=== PATIENT | female | born 1985 | race Caucasian/White ===

== ENCOUNTER 2019-04-10 15:30 | Outpatient (CLI) | payer BC | END 2019-04-10 17:30 | disposition home or self-care (01) | LOC: LDOP 15:30 | PROVIDERS: ATTEND Obstetrics & Gynecology | DX: O16.3 Unspecified maternal hypertension, third trimester (principal); Z3A.38 38 weeks gestation of pregnancy | CPT/HCPCS: 36415; 59025; 80053; 81003; 82248; 82570; 84156; 84550; 85025; 99211; G0463 ==

== ENCOUNTER 2019-04-14 22:09 | Inpatient (IN) | payer BC ==
[~2019-04-14] VITALS: Ht 165.1 cm; Wt 104.5 kg
[2019-04-14 22:00] VITALS: BP 173/95
[~2019-04-14 22:09] MED LIST: NIFE30TA2 PO
[2019-04-14 22:33] LABS: MICROSCOPIC INDICATED
[2019-04-14 22:39] LABS: BASOPHILS # (AUTO) 0.03 x10^3/uL (0-0.1); BASOPHILS % (AUTO) 0 % (0-1); EOSINOPHILS # (AUTO) 0.05 x10^3/uL (0-0.4); EOSINOPHILS % (AUTO) 1 % (1-7); LYMPHOCYTES # (AUTO) 3.07 x10^3/uL (1-3.4); LYMPHOCYTES % (AUTO) 33 % (22-44); MD NO; MEAN CORPUSCULAR HEMOGLOBIN 26.3 pg (27.0-34.8); MEAN CORPUSCULAR VOLUME 82.3 fL (80-100); MONOCYTES # (AUTO) 0.69 x10^3/uL (0.2-0.8); MONOCYTES % (AUTO) 7 % (2-9); NEUTROPHILS # (AUTO) 5.59 x10^3/uL (1.8-6.8); NEUTROPHILS % (AUTO) 59 % (42-75); PLATELET COUNT 251 x10^3/uL (130-400); RED BLOOD COUNT 4.22 x10^6/uL (3.82-5.3); RED CELL DISTRIBUTION WIDTH 14.1 % (9.6-15.2)
[2019-04-14 22:49] LABS: ALANINE AMINOTRANSFERASE 20 U/L (12-78); ALBUMIN 2.7 g/dL (3.4-5.0); ANION GAP 10 mmol/L (5-15); BILIRUBIN, DIRECT < 0.1 mg/dL (0.1-0.2); CALCIUM 8.9 mg/dL (8.5-10.1); CHLORIDE 111 mmol/L (98-107); CREATININE 0.77 mg/dL (0.55-1.02)
[2019-04-14 22:52] LABS: ALKALINE PHOSPHATASE 104 U/L (45-117); BILIRUBIN,TOTAL 0.2 mg/dL (0.2-1.0); TOTAL PROTEIN 6.4 g/dL (6.4-8.2)
[2019-04-15] MEDS ORDERED: D5%-LACTATED RINGERS 1,000 ML IV SCH (05:34)
[2019-04-15] MEDS ORDERED: OXYTOCIN 30U/ 0.9% NaCL 500ML 500 ML IV ONE (05:34)
[2019-04-15] MEDS ORDERED: MISOPROSTOL 200 MCG TABLET ONE (05:39)
[2019-04-15] MEDS ORDERED: LIDOCAINE 1%, 20ML ONE (05:39)
[2019-04-15] MEDS ORDERED: MISOPROSTOL 25 MCG TABLET ONE ×3 (05:48→13:05)
[2019-04-15] MEDS: LACTATED RINGERS 1,000 ML IV SCH ×4 (05:50→22:59)
[2019-04-15] MEDS ORDERED: METOCLOPRAMIDE 5 MG/ML, 2ML IVPush PRN (06:00)
[2019-04-15] MEDS ORDERED: FENTANYL PF 100 MCG/2ML IV PRN (06:00)
[2019-04-15] MEDS ORDERED: FENTANYL PF 100 MCG/2ML IVPush PRN (06:00)
[2019-04-15] MEDS ORDERED: NEWBORN KIT ONE (06:02)
[2019-04-15] MEDS: MISOPROSTOL 25 MCG TABLET VG PRN ×2 (06:10→10:26)
[2019-04-15] MEDS ORDERED: FENTANYL/BUPIV./NS/PF 250 ML EPIDCONT ONE (08:41)
[2019-04-15] MEDS ORDERED: HEPARIN 5,000 UNITS/ML, 1ML SQ ONE (10:00)
[2019-04-15] MEDS ORDERED: HEPARIN 5,000 UNITS/ML, 1ML ONE (10:03)
[2019-04-15] MEDS ORDERED: OXYTOCIN 30U/ 0.9% NaCL 500ML 500 ML IV PRN (15:10)
[2019-04-15] MEDS ORDERED: OXYTOCIN 30U/ 0.9% NaCL 500ML 500 ML ONE (15:22)
[2019-04-15 16:09] LABS: BASOPHILS # (AUTO) 0.04 x10^3/uL (0-0.1); BASOPHILS % (AUTO) 1 % (0-1); EOSINOPHILS # (AUTO) 0.08 x10^3/uL (0-0.4); EOSINOPHILS % (AUTO) 1 % (1-7); LYMPHOCYTES # (AUTO) 2.69 x10^3/uL (1-3.4); LYMPHOCYTES % (AUTO) 40 % (22-44); MD NO; MEAN CORPUSCULAR HEMOGLOBIN 27.1 pg (27.0-34.8); MEAN CORPUSCULAR HGB CONC 32.8 g/dL (32.4-35.8); MEAN CORPUSCULAR VOLUME 82.7 fL (80-100); MEAN PLATELET VOLUME 8.3 fL (7.4-10.4); MONOCYTES # (AUTO) 0.68 x10^3/uL (0.2-0.8); MONOCYTES % (AUTO) 10 % (2-9); NEUTROPHILS % (AUTO) 48 % (42-75); PLATELET COUNT 231 x10^3/uL (130-400); RED CELL DISTRIBUTION WIDTH 14.8 % (9.6-15.2)
[2019-04-15 16:26] LABS: INTERNATIONAL NORMALIZED RATIO 0.89 (0.93-1.1); PROTHROMBIN TIME 9.4 Seconds (9.6-11.5)
[2019-04-15] MEDS ORDERED: FENTANYL/BUPIV./NS/PF 250 ML EPIDCONT SCH (17:33)
[2019-04-15] MEDS ORDERED: LACTATED RINGERS 1,000 ML IVBOLUS PRN (18:00)
[2019-04-15] MEDS ORDERED: FENTANYL PF 500 MCG, BUPIVACAINE/PF 0.5%, 30ML 62.5 ML in SODIUM CHLORIDE 0.9% 177.5 ML EPIDCONT SCH (18:00)
[2019-04-15] MEDS ORDERED: EPHEDRINE 50 MG/ML, 1ML IVPush PRN (18:00)
[2019-04-15] MEDS ORDERED: BUPIVACAINE 0.25% ONE (18:05)
[2019-04-15] MEDS ORDERED: LIDOCAINE/PF 1.5%-EPI 1:200K, 30ML ONE (18:10)
[2019-04-15] MEDS ORDERED: ONDANSETRON 2MG/ML, 2ML ONE ×2 (19:19→23:40)
[2019-04-15] MEDS: ONDANSETRON 2MG/ML, 2ML IVPush PRN (19:23)
[2019-04-15] MEDS ORDERED: LACTATED RINGERS 1,000 ML INTUTE ONE (23:00)
[2019-04-15] MEDS ORDERED: LACTATED RINGERS 1,000 ML INTUTE SCH (23:00)
[2019-04-15] MEDS ORDERED: TERBUTALINE 1 MG/ML, 1ML ONE (23:33)
[2019-04-15] MEDS: TERBUTALINE 1 MG/ML, 1ML IVPush PRN (23:34)
[2019-04-15] MEDS ORDERED: OXYTOCIN 10 UNITS/ML, 1ML ONE (23:40)
[2019-04-15] MEDS ORDERED: CEFAZOLIN 1,000 MG ONE (23:40)
[2019-04-15] MEDS ORDERED: FENTANYL PF 100 MCG/2ML ONE (23:40)
[2019-04-15] MEDS ORDERED: HYDROmorphone 2 MG/ML, 1ML ONE (23:40)
[2019-04-16] MEDS ORDERED: TERBUTALINE 1 MG/ML, 1ML IVPush PRN
[2019-04-16] MEDS ORDERED: TERBUTALINE 1 MG/ML, 1ML SQ PRN
[2019-04-16] MEDS: LACTATED RINGERS 1,000 ML IV SCH (01:33)
[2019-04-16] MEDS ORDERED: ONDANSETRON 2MG/ML, 2ML ONE ×2 (03:05→06:16)
[2019-04-16] MEDS: ONDANSETRON 2MG/ML, 2ML IVPush PRN (03:08)
[2019-04-16] MEDS: TERBUTALINE 1 MG/ML, 1ML IVPush PRN (03:09)
[2019-04-16] MEDS ORDERED: DOCUSATE 100 MG CAPSULE PO PRN (04:00)
[2019-04-16] MEDS ORDERED: MISOPROSTOL 200 MCG TABLET PR PRN (04:00)
[2019-04-16] MEDS ORDERED: OXYcodone/APAP 5/325MG TABLET PO PRN (04:00)
[2019-04-16] MEDS ORDERED: OXYTOCIN 30U/ 0.9% NaCL 500ML 500 ML ONE ×2 (04:21→07:42)
[2019-04-16] MEDS ORDERED: CARBOPROST TROMETHAMINE 250 MCG/ML, 1ML IM ONE (05:34)
[2019-04-16] MEDS ORDERED: CARBOPROST TROMETHAMINE 250 MCG/ML, 1ML IM PRN (06:00)
[2019-04-16] MEDS ORDERED: OXYTOCIN 10 UNITS/ML, 1ML ONE (06:16)
[2019-04-16] MEDS ORDERED: CEFAZOLIN 1,000 MG ONE (06:16)
[2019-04-16] MEDS: OXYTOCIN 30U/ 0.9% NaCL 500ML 500 ML IV SCH ×3 (07:44→21:04)
[2019-04-16] MEDS: PRENATAL VIT/IRON/FA 1 EACH TABLET PO SCH (09:00)
[2019-04-16] MEDS ORDERED: ENOXAPARIN 40 MG/0.4 ML SQ SCH (10:00)
[2019-04-16] MEDS: ENOXAPARIN 40 MG/0.4 ML SQ SCH (10:08)
[2019-04-16 10:30] VITALS: BP 137/87
[2019-04-16 12:16] LABS: MEAN CORPUSCULAR HEMOGLOBIN 26.3 pg (27.0-34.8); MEAN CORPUSCULAR HGB CONC 32.2 g/dL (32.4-35.8); MEAN CORPUSCULAR VOLUME 81.6 fL (80-100); MEAN PLATELET VOLUME 7.5 fL (7.4-10.4); PLATELET COUNT 206 x10^3/uL (130-400); RED BLOOD COUNT 3.74 x10^6/uL (3.82-5.3); RED CELL DISTRIBUTION WIDTH 14.6 % (9.6-15.2)
[2019-04-16 12:20] VITALS: BP 141/86
[2019-04-16 12:35] LABS: BASOPHILS # (AUTO) 0.05 x10^3/uL (0-0.1); BASOPHILS % (AUTO) 0 % (0-1); EOSINOPHILS # (AUTO) 0.01 x10^3/uL (0-0.4); EOSINOPHILS % (AUTO) 0 % (1-7); LYMPHOCYTES # (AUTO) 2.45 x10^3/uL (1-3.4); LYMPHOCYTES % (AUTO) 19 % (22-44); MD SCAN; MONOCYTES # (AUTO) 1.02 x10^3/uL (0.2-0.8); MONOCYTES % (AUTO) 8 % (2-9); NEUTROPHILS # (AUTO) 9.74 x10^3/uL (1.8-6.8); NEUTROPHILS % (AUTO) 73 % (42-75)
[2019-04-16] MEDS: OXYcodone/APAP 5/325MG TABLET PO PRN ×2 (13:03→19:16)
[2019-04-16 17:59] VITALS: BP 117/78
[2019-04-16 19:45] VITALS: BP 134/88
[2019-04-17] MEDS: OXYcodone/APAP 5/325MG TABLET PO PRN ×3 (02:43→15:52)
[2019-04-17 07:30] VITALS: BP 127/82
[2019-04-17] MEDS: PRENATAL VIT/IRON/FA 1 EACH TABLET PO SCH (11:26)
[2019-04-17] MEDS ORDERED: MEASLES,MUMPS&RUBELLA VACC/PF 0.5 ML SQ-VACC ONE ×2 (11:43→12:00)
[2019-04-17] MEDS: ENOXAPARIN 40 MG/0.4 ML SQ SCH (11:50)
[2019-04-17] MEDS ORDERED: OXYC-302 PO (12:30)
== END 2019-04-17 16:35 | disposition home or self-care (01) | DRG 806 ==
LOC: LDOP 22:09 → LDIP 23:00 → OBSVTOIN 23:00 → LDIP 04-15 01:30 → 2NW 04-16 10:15
PROVIDERS: ADMIT Obstetrics & Gynecology; ATTEND Obstetrics & Gynecology
PROC: 10E0XZZ Delivery of Products of Conception, External Approach (ICD-10-PCS; principal; 2019-04-16)
PROC: 10907ZC Drainage of Amniotic Fluid, Therapeutic from Products of Conception, Via Natural or Artificial Opening (ICD-10-PCS; 2019-04-16)
PROC: 3E0P7VZ Introduction of Hormone into Female Reproductive, Via Natural or Artificial Opening (ICD-10-PCS; 2019-04-16)
PROC: 10H07YZ Insertion of Other Device into Products of Conception, Via Natural or Artificial Opening (ICD-10-PCS; 2019-04-16)
PROC: 3E0R3BZ Introduction of Anesthetic Agent into Spinal Canal, Percutaneous Approach (ICD-10-PCS; 2019-04-16)
PROC: 00HU33Z Insertion of Infusion Device into Spinal Canal, Percutaneous Approach (ICD-10-PCS; 2019-04-16)
DX: O69.1XX0 Labor and delivery complicated by cord around neck, with compression, not applicable or unspecified (principal); O10.92 Unspecified pre-existing hypertension complicating childbirth; Z37.0 Single live birth; O99.214 Obesity complicating childbirth; O76 Abnormality in fetal heart rate and rhythm complicating labor and delivery; E66.01 Morbid (severe) obesity due to excess calories; Z3A.38 38 weeks gestation of pregnancy
CPT/HCPCS: 36415; J3490; 76815; 80053; 81001; 82248; 82570; 82803; 84156; 84550; 85025; 85610; 85730; 86850; 86900; G0378; J0690; J1170; J1644; J1650; J2405; J3010; J2590; J3105; J7120